=== PATIENT | female | born 1995 | race Caucasian/White ===

== ENCOUNTER → 2018-12-06 | Outpatient (CLI) | payer OTHER | LOC: COL.RAD 10:38 | DX: D47.2 Monoclonal gammopathy (principal); R61 Generalized hyperhidrosis; R06.09 Other forms of dyspnea; R10.9 Unspecified abdominal pain | CPT/HCPCS: Q9967 ==

== ENCOUNTER 2019-01-18 07:13 | Outpatient (CLI) | payer OTHER ==
[2019-01-18] VITALS (7 sets, daily range): BP systolic 113–136; BP diastolic 56–83; PULSE 79–97
[~2019-01-18] VITALS: Ht 162.6 cm; Wt 106.8 kg
[2019-01-18] MEDS ORDERED: MAG-OX 400400 MG/TAB PO (07:26)
[2019-01-18] MEDS ORDERED: FLONASEALLERGY NS (07:26)
[2019-01-18] MEDS ORDERED: B-121000 MCG PO (07:28)
[2019-01-18] MEDS ORDERED: ZYRTEC 10MG10 MG PO (07:28)
[2019-01-18] MEDS ORDERED: ZANAFLEX 4MG TAB4 MG PO (07:29)
[2019-01-18] MEDS ORDERED: VIT D 2 (07:31)
[2019-01-18] MEDS ORDERED: CYMBALTA 60MG60 MG PO (07:32)
[2019-01-18] MEDS ORDERED: MYLAN (07:34)
[2019-01-18] MEDS ORDERED: GLUCOPHAGE500 MG/TAB PO (07:35)
[2019-01-18] MEDS ORDERED: COZAAR 25MG25 MG/TAB PO (07:35)
[2019-01-18] MEDS ORDERED: VITAMIN D 1001000 IU PO (07:36)
[2019-01-18 09:21] LABS: GLUCOSE,CSF 79 mg/dL (40-70); TOTAL PROTEIN,CSF 26 mg/dL (15-45)
[2019-01-18 09:55] LABS: CSF APPEARANCE CLEAR; CSF COLOR COLORLESS; CSF RBC 118 /mm3 (0-0)
[2019-01-18 09:56] LABS: CSF MONONUCLEAR 100 % (70-100); CSF POLYMORPHONUCLEAR 0 % (0-6)
--- NOTE | 2019-01-18 10:02 | NUR ---
Discharge instructions given to pt.Pt verbalizes understanding.
--- NOTE | 2019-01-18 10:17 | NUR ---
Discharge instructions given to pt.pt verbalizes understanding.Pt escorted out by this nurse.
== END 2019-01-18 10:19 | disposition home or self-care (01) ==
LOC: COL.RAD 07:13
PROVIDERS: Psychiatry & Neurology Neurology
DX: G43.809 Other migraine, not intractable, without status migrainosus (principal); E55.9 Vitamin D deficiency, unspecified; E53.8 Deficiency of other specified B group vitamins

== ENCOUNTER 2019-01-21 16:37 | Emergency (ER) | payer OTHER ==
[~2019-01-21] VITALS: Ht 160 cm; Wt 104.5 kg
[~2019-01-21 16:37] MED LIST: B-121000 MCG PO; COZAAR 25MG25 MG/TAB PO; CYMBALTA 60MG60 MG PO; FLONASEALLERGY NS; GLUCOPHAGE500 MG/TAB PO; MAG-OX 400400 MG/TAB PO; MYLAN; VIT D 2; VITAMIN D 1001000 IU PO; ZANAFLEX 4MG TAB4 MG PO; ZYRTEC 10MG10 MG PO
[2019-01-21 16:40] VITALS: TEMP 98.5
[2019-01-21 20:11] VITALS: BP 131/63; PULSE 96
== END 2019-01-21 20:11 | disposition home or self-care (01) ==
LOC: COL.ER 16:37
DX: G97.1 Other reaction to spinal and lumbar puncture (principal); Z79.51 Long term (current) use of inhaled steroids; Z79.84 Long term (current) use of oral hypoglycemic drugs
CPT/HCPCS: J3010; J7030

== ENCOUNTER → 2019-12-16 | Outpatient (CLI) | payer OTHER | LOC: COL.CARD 09:27 | DX: G43.909 Migraine, unspecified, not intractable, without status migrainosus (principal); R44.2 Other hallucinations; R42 Dizziness and giddiness ==

== ENCOUNTER 2020-01-27 10:58 | Emergency (ER) | payer OTHER ==
[~2020-01-27] VITALS: Ht 160 cm; Wt 104.5 kg
[2020-01-27 11:52] LABS: COLLECTION METHOD CLEAN CATCH
[2020-01-27 12:07] LABS: MUCOUS Present /lpf; PH 5 (5-8); URINE APPEARANCE Cloudy; URINE BACTERIA Rare /hpf; URINE BILIRUBIN Negative (NEGATIVE); URINE BLOOD Negative (NEGATIVE); URINE COLOR Yellow; URINE GLUCOSE Negative (NEGATIVE); URINE KETONE Negative (NEGATIVE); URINE LEUKOCYTE ESTERASE 2+ (NEGATIVE); URINE NITRATE Negative (NEGATIVE); URINE PROTEIN(semi-quant) 2+ (NEGATIVE); URINE UROBILINOGEN Negative (NEGATIVE)
[2020-01-27 12:16] LABS: BASO # 0.1 (0.0-0.2); BASO % 0.6 % (0.0-2.0); EOS # 0.1 (0.0-0.7); EOS % 1.6 % (0-4.0); GRAN # 4.1 (1.4-6.5); GRAN % 48.7 % (42.2-75.2); HEMATOCRIT 40.7 % (37.0-47.0); HEMOGLOBIN 13.6 g/dl (12.5-16.0); LYMPH # 3.5 (1.2-3.4); LYMPH % 40.7 % (20.0-51.0); MEAN CELL VOLUME 83 fl (80.0-100.0); MEAN CORPUSCULAR HEMOGLOBIN 28 pg (27.0-31.0); MEAN CORPUSCULAR HGB CONC 33 g/dl (33.0-37.0); MEAN PLATELET VOLUME 9.8 fl (7.4-10.4); MONO # 0.7 (0.1-0.6); MONO % 8.2 % (1.7-9.3); PLATELET COUNT 379 K/mm3 (130-400); RED BLOOD COUNT 4.93 M/mm3 (4.10-5.30); REDCELL DISTRIBUTION WIDTH-CV 12.2 % (11.5-14.5)
[2020-01-27 12:28] LABS: ALBUMIN 4.5 gm/dL (3.5-5.0); BILIRUBIN,TOTAL 0.6 mg/dL (0.0-1.0); C-REACTIVE PROTEIN 1.7 mg/dL (0.0-0.9); CALCIUM 9.9 mg/dL (8.4-10.2); CREATININE, serum 0.56 (0.52-1.25); POTASSIUM 3.9 mmol/L (3.4-5.0)
[2020-01-27] MEDS ORDERED: MEDROL 4MG DOSPA4 MG PO (12:52)
[2020-01-27] MEDS ORDERED: OMNICEF 300MG300 MG PO (12:52)
[2020-01-27 13:48] VITALS: BP 122/82; PULSE 80; TEMP 98.2
[2020-01-27] MEDS ORDERED: NORCO 325 MG-51 TAB PO (17:14)
[2020-01-29] MEDS ORDERED: NORCO 325 MG-51 TAB PO (12:17)
== END 2020-01-27 13:48 | disposition home or self-care (01) ==
LOC: COL.ER 10:58
PROVIDERS: Family Medicine
DX: M54.16 Radiculopathy, lumbar region (principal); R20.2 Paresthesia of skin; N39.0 Urinary tract infection, site not specified; F32.9 Major depressive disorder, single episode, unspecified; Z79.84 Long term (current) use of oral hypoglycemic drugs

== ENCOUNTER 2020-03-10 17:06 | Emergency (ER) | payer OTHER ==
[~2020-03-10] VITALS: Ht 160 cm; Wt 104.5 kg
[~2020-03-10 17:06] MED LIST changes: +MEDROL 4MG DOSPA4 MG PO; +NORCO 325 MG-51 TAB PO; +OMNICEF 300MG300 MG PO
[2020-03-10 17:14] VITALS: TEMP 98.5
[2020-03-10 17:52] LABS: BASO # 0.1 (0.0-0.2); BASO % 0.4 % (0.0-2.0); EOS # 0.1 (0.0-0.7); EOS % 0.7 % (0-4.0); HEMATOCRIT 43.5 % (37.0-47.0); HEMOGLOBIN 14.6 g/dl (12.5-16.0); LYMPH # 3.8 (1.2-3.4); LYMPH % 29.5 % (20.0-51.0); MEAN CELL VOLUME 83 fl (80.0-100.0); MEAN CORPUSCULAR HEMOGLOBIN 28 pg (27.0-31.0); MEAN CORPUSCULAR HGB CONC 34 g/dl (33.0-37.0); MEAN PLATELET VOLUME 9.9 fl (7.4-10.4); MONO # 0.9 (0.1-0.6); MONO % 7.1 % (1.7-9.3); PLATELET COUNT 407 K/mm3 (130-400); RED BLOOD COUNT 5.24 M/mm3 (4.10-5.30); REDCELL DISTRIBUTION WIDTH-CV 12.5 % (11.5-14.5)
[2020-03-10 18:00] LABS: ALBUMIN 4.8 gm/dL (3.5-5.0); BILIRUBIN,TOTAL 0.5 mg/dL (0.0-1.0); CALCIUM 9.9 mg/dL (8.4-10.2); CREATININE, serum 0.51 (0.52-1.25); POTASSIUM 3.9 mmol/L (3.4-5.0); TOTAL PROTEIN 8.5 gm/dL (6.4-8.2)
[2020-03-10 18:46] LABS: COLLECTION METHOD CLEAN CATCH
[2020-03-10 18:54] LABS: MUCOUS Present /lpf; PH 6 (5-8); URINE APPEARANCE Hazy; URINE BACTERIA None Seen /hpf; URINE BILIRUBIN Negative (NEGATIVE); URINE BLOOD Negative (NEGATIVE); URINE COLOR Yellow; URINE GLUCOSE Negative (NEGATIVE); URINE KETONE Negative (NEGATIVE); URINE LEUKOCYTE ESTERASE Negative (NEGATIVE); URINE NITRATE Negative (NEGATIVE); URINE PROTEIN(semi-quant) 2+ (NEGATIVE); URINE UROBILINOGEN Negative (NEGATIVE)
[2020-03-10] MEDS ORDERED: ZOFRAN ODT4 MG PO (19:01)
[2020-03-10 20:22] VITALS: BP 135/87; PULSE 112
== END 2020-03-10 20:23 | disposition home or self-care (01) ==
LOC: COL.ER 17:06
PROVIDERS: Emergency Medicine
DX: R11.2 Nausea with vomiting, unspecified (principal); E11.9 Type 2 diabetes mellitus without complications; F41.9 Anxiety disorder, unspecified; F32.9 Major depressive disorder, single episode, unspecified; I10 Essential (primary) hypertension; Z79.84 Long term (current) use of oral hypoglycemic drugs; Z20.822 Contact with and (suspected) exposure to COVID-19
CPT/HCPCS: J2405; J7120

== ENCOUNTER → 2021-08-24 | Outpatient (CLI) | payer OTHER ==
[~2021-08-24] MED LIST changes: +ANTIVERT 25MG25 MG PO; +BOTOX 100100 U/VIAL; +EMGALITY120 MG/1 M SQ; +GLUMETZA500 MG PO; +HCTZ12.5TAB PO; +INDERAL LA 60MG60 MG PO; +OZEMPIC0.25 MG/0. SQ; +PROTONIX 40MG T40 MG PO; +ZOFRAN ODT4 MG PO; +[UNRECOGNIZED DRUG - OTHER] PO
== END ==
LOC: COL.RAD 07:30
DX: K21.9 Gastro-esophageal reflux disease without esophagitis (principal); R68.81 Early satiety; R19.4 Change in bowel habit
CPT/HCPCS: A9541